=== PATIENT | female | born 1985 | race Caucasian/White ===

== ENCOUNTER 2017-07-10 07:17 | Inpatient (IN) | payer BC ==
[2017-07-10] VITALS (21 sets, daily range): BP systolic 94–130; BP diastolic 54–77
[~2017-07-10] VITALS: Ht 160 cm; Wt 98.6 kg
[~2017-07-10 07:17] MED LIST: ENDOCET 5-3251 EACH PO; MOTRIN800 MG PO; Motrin PO; NATALCARE RX1 TABLET PO; Natalcare Rx,Pramile PO; PROCTOFOAM-HC10 GM PR; Percocet 5/325,Endoc PO
[2017-07-10 08:30] LABS: EOSINOPHIL (%) 0.9 % (0-5); EOSINOPHIL COUNT 0.1 K/uL (0-0.3); HEMATOCRIT 28.3 % (36.0-46.0); IMMATURE GRANULOCYTE (%) 1.5 % (0.0-0.7); IMMATURE GRANULOCYTE COUNT 0.2 K/uL; INSTRUMENT ABS NEUTROPHIL CT 11.6 K/uL; LYMPHOCYTE COUNT 2.1 K/uL (1.0-2.8); MCH 23.8 PG (29.0-34.0); MCHC 30.7 G/DL (30.0-36.0); MCV 77.3 FL (83-99); MEAN PLAT.VOLUME 9.3 uM^3 (9.5-12.4); MONOCYTE (%) 5.6 % (3-12); MONOCYTE COUNT 0.8 K/uL (0-0.8); NEUTROPHIL (%) 77.7 % (45-76); NEUTROPHIL COUNT 11.6 K/uL (1.8-6.4); PLATELET COUNT 315 K/uL (156-360); RBC DIS.WIDTH-CV 14.5 % (11.8-14.6); RBC DIS.WIDTH-SD 40.5 % (39-53); RED BLOOD COUNT 3.66 M/uL (3.80-5.20)
[2017-07-10] MEDS ORDERED: MOTRIN800 MG PO (16:42)
[2017-07-10] MEDS ORDERED: SLOW RELEASE I160 MG PO (16:51)
[2017-07-11 07:36] VITALS: BP 107/61
[2017-07-11 14:43] VITALS: BP 118/56
== END 2017-07-11 19:41 | disposition home or self-care (01) | DRG 775 ==
LOC: LDRP-OP 07:17 → 2WEST 07:19 → LDRP-OP 18:29 → 2WEST 07-11 19:41 → LDRP-OP 08-13 09:11
PROVIDERS: Obstetrics & Gynecology
PROC: 10E0XZZ Delivery of Products of Conception, External Approach (ICD-10-PCS; principal; 2017-07-10)
PROC: 10907ZC Drainage of Amniotic Fluid, Therapeutic from Products of Conception, Via Natural or Artificial Opening (ICD-10-PCS; 2017-07-10)
PROC: 3E033VJ Introduction of Other Hormone into Peripheral Vein, Percutaneous Approach (ICD-10-PCS; 2017-07-10)
PROC: 3E0S3BZ Introduction of Anesthetic Agent into Epidural Space, Percutaneous Approach (ICD-10-PCS; 2017-07-10)
DX: O99.02 Anemia complicating childbirth (principal); D50.9 Iron deficiency anemia, unspecified; Z37.0 Single live birth; Z3A.39 39 weeks gestation of pregnancy
CPT/HCPCS: 85025; C1755; J3010; J7120